=== PATIENT | female | born 1950 | race Caucasian/White ===

== ENCOUNTER → 2020-05-11 | Outpatient (CLI) | payer MEDICARE ==
--- NOTE | 2020-05-11 15:43 | Diagnostic Imaging Report ---
CT Lung Screening INDICATION: History of tobacco use with a 50 pack year history. Currently smokes. TECHNIQUE: Noncontrast, low-dose CT imaging performed according to lung cancer screening protocol. Auto Exposure Controls were utilized during the CT exam to meet ALARA standards for radiation dose reduction. COMPARISON: None FINDINGS: HEART/MEDIASTINUM: Heart size normal. Mild scattered coronary artery calcification. Thoracic aorta is diffusely prominent. Maximum dimension descending thoracic aorta at 3.1 cm. Small hiatal hernia. No suggestion for pathologically enlarged mediastinal lymph nodes on limited, noncontrast imaging. LUNGS/MEASURED PULMONARY NODULES: Emphysematous change about the lung parenchyma. Spiculated mass centrally right upper lobe measuring 18 x 9 x 29 mm. This is largely calcified but is slightly eccentric with a calcification. Slightly more soft tissue component is noted superiorly. Soft tissue component measuring up to 14 mm. There are several additional small micronodules present. Otherwise, no concerning pulmonary mass suggested. No pleural effusion. OTHER: Nonacute, chronic appearing compression deformity with loss of slightly greater than 50% vertebral body height T11 vertebral body. IMPRESSION: 1. Spiculated largely calcified mass right upper lobe. May very well reflect area of scarring. However there is some irregular spiculated soft tissue components along the peripheral margins. Findings are superimposed on advanced emphysematous lung disease. LUNG-RADS CATEGORY: 4 A LUNG SCREENING MANAGEMENT/RECOMMENDATIONS: PET/CT is recommended. Alternatively, 3 month follow-up low-dose CT imaging could be considered. Notes: Please note that this is a low dose CT examination, intended for lung cancer screening of high risk patients. As a technical result, the examination is limited in diagnostic quality compared to a conventional CT examination of the chest. Dictated by: Dictated on workstation # [id number]
== END ==
LOC: RAD 13:17
PROVIDERS: ATTEND Family Medicine
DX: Z12.2 Encounter for screening for malignant neoplasm of respiratory organs (principal); J43.9 Emphysema, unspecified; R92.8 Other abnormal and inconclusive findings on diagnostic imaging of breast; F17.210 Nicotine dependence, cigarettes, uncomplicated

== ENCOUNTER → 2020-05-25 | Outpatient (CLI) | payer MEDICARE ==
--- NOTE | 2020-05-25 15:08 | Diagnostic Imaging Report ---
EXAM: PET/CT INDICATION: Lung mass EXAMINATION: After intravenous administration of 15.23 mCi of F18-FDG into the left antecubital fossa, a series of overlapping emission and transmission PET images was obtained. In the coronal, transaxial and sagittal planes, the area imaged extended from the skull base through the upper thighs. Height: 5 3" Weight: 100 pounds. Blood glucose: 98 COMPARISON: There are no prior PET/CT examinations available for comparison. The CT low-dose lung cancer screening exam of 05/11/2020, did note a spiculated larger calcified mass in the right upper lobe measuring 18 x 9 x 29 mm. This mass did contain a soft tissue component of approximately 14 mm. There are also several additional small micronodules in this region. On this exam, that finding is again evident. The maximum SUV in this area is approximately 1. Consequently I do suspect this is a benign process. Even so, it may prove worthwhile to have a short-term (6 month) follow-up CT low-dose lung cancer screening exam for continued evaluation. The right lobe of the thyroid is slightly more hypermetabolic than the left lobe. The maximum SUV of the right lobe is 4.0 while the maximum SUV of the left lobe is only 2.2. There is no focal mass involving the right lobe of the thyroid. Even so, I would recommend that ultrasound be performed for further study. There is a fairly intense small focus of hypermetabolic activity adjacent to the anterior aspect of the left hip. This has a maximum SUV of approximately 6.7. This finding is of uncertain etiology but appears to lie outside of the hip joint. This may be due to muscular activity or to a muscular injury. Clinical follow-up is recommended. There is no other hypermetabolic activity to suggest the presence of malignancy. The CT images failed to show any sign of an acute abnormality. IMPRESSION: 1. The spiculated largely calcified mass in the right upper lobe is not hypermetabolic. Most likely this is a benign process. A six-month follow-up CT chest exam would be recommended for continued evaluation. 2. The right lobe of the thyroid does seem generally more hypermetabolic than the left. The reason for this is not certain. Ultrasound would be recommended for further evaluation. 3. The small focus of hypermetabolic activity anterior to the left hip may be related to muscular activity or to a muscular injury. Clinical follow-up is recommended. Dictated by: Dictated on workstation # [id number]
== END ==
LOC: RAD 07:45
PROVIDERS: ATTEND Family Medicine
DX: R91.8 Other nonspecific abnormal finding of lung field (principal)
CPT/HCPCS: 78815; A9552

== ENCOUNTER → 2020-10-18 | Outpatient (CLI) | payer MEDICARE ==
[~2020-10-18] MED LIST: CATHETER FLUSH 10 ML SYR IV PRN; HOLD METFORMIN - RECEIVED CONTRAST 20 ML VIAL IV SCH; IOHEXOL 350 MG/ML 100 ML (OMNIPAQUE 350) VIAL IV ONE; NS 100 ML (IVPB) BAG IV ONE; RT-ALBUTEROL SULF 2.5 MG/3 ML PRE-MIX VIAL INH ONE
[2020-10-18 11:52] LABS: BUN/CREATININE RATIO 17; CREATININE SERUM 0.69 MG/DL (0.60-1.30); GFR ESTIMATED > 60
--- NOTE | 2020-10-18 12:40 | Diagnostic Imaging Report ---
PROCEDURE: CT chest with contrast only. TECHNIQUE: Multiple contiguous axial images were obtained through the chest after administration of intravenous contrast. Auto Exposure Controls were utilized during the CT exam to meet ALARA standards for radiation dose reduction. INDICATION: Dyspnea. COMPARISON: 05/11/2020. FINDINGS: Similar to the previous study, there is diffuse centrilobular emphysema throughout the lungs with an upper lobe predominance. The spiculated density in the right upper lobe has not significantly changed, suggestive of probable benign etiology. No pleural or pericardial fluid is identified. There is no evidence of pathologic adenopathy in the thorax. Compression fracture deformity is noted in the lower thoracic spine, similar to the previous exam. No abnormal contrast enhancement is seen. IMPRESSION: Background emphysema and unchanged spiculated nodule in the right apex. Given the stability since the previous study, this is likely benign although an additional followup study in 6 months is recommended for assessment. Dictated by: Dictated on workstation # [id number]
== END ==
LOC: RT 12:15
PROVIDERS: ATTEND Nurse Practitioner Family
DX: J43.9 Emphysema, unspecified (principal); R91.8 Other nonspecific abnormal finding of lung field; F17.210 Nicotine dependence, cigarettes, uncomplicated
CPT/HCPCS: 36415; 71260; 82565; 84520; 94060; 94726; 94729

== ENCOUNTER → 2021-07-26 | Outpatient (CLI) | payer MEDICARE ==
[~2021-07-26] MED LIST changes: -RT-ALBUTEROL SULF 2.5 MG/3 ML PRE-MIX VIAL INH ONE
[2021-07-26 09:17] LABS: CREATININE SERUM 0.79 MG/DL (0.60-1.30)
--- NOTE | 2021-07-26 10:39 | Diagnostic Imaging Report ---
PROCEDURE: CT chest with contrast only. TECHNIQUE: Multiple contiguous axial images were obtained through the chest after administration of intravenous contrast. Auto Exposure Controls were utilized during the CT exam to meet ALARA standards for radiation dose reduction. INDICATION: Abnormal findings, pulmonary nodule. COMPARISON: 10/18/2020, 05/11/2020, and PET/CT dated 05/25/2020. FINDINGS: Tiny subcentimeter thyroid hypodense nodules are again identified and not significantly changed. No aneurysmal dilatation of the thoracic aorta with scattered vascular calcifications present, including within the coronary arteries. No significant adenopathy within chest. The heart is within normal limits in size. No pericardial effusion. No pleural effusion. No pneumothorax. Moderate background emphysematous changes are again identified. Linear filling defects within the left aspect of the trachea are felt to relate to secretions. Irregular 1.9 x 0.8 cm predominantly calcified right upper lobe pulmonary nodule is again identified, unchanged from the prior examinations. This was previously shown to also be non-hypermetabolic on PET/CT imaging. No new suspicious pulmonary nodule or mass. Calcifications are again identified throughout the pancreatic parenchyma, related to sequelae of prior pancreatitis. The visualized upper abdomen is otherwise unremarkable. Severe compression deformity of T6 is identified with a vertebral plana appearance. This is new from the prior examination. No significant retropulsion. Moderate superior endplate compression deformity of T11 is identified and unchanged from prior examination. Scattered osseous degenerative changes. IMPRESSION: Stable irregular 1.9 cm predominantly calcified right upper lobe pulmonary nodule. This is unchanged since April 2020, suggesting a benign etiology. Follow-up CT of the chest in one year is recommended. Severe compression deformity of T6. Exact chronicity is uncertain, though this is new since September 2020. Recommend correlation for focal pain at this location. No significant resulting central canal stenosis. Moderate background emphysematous changes. Dictated by: Dictated on workstation # [id number]
== END ==
LOC: RAD 09:45
PROVIDERS: ATTEND Nurse Practitioner Family
DX: R91.1 Solitary pulmonary nodule (principal)
CPT/HCPCS: 36415; 71260; 82565; 84520

== ENCOUNTER → 2022-01-18 | Outpatient (CLI) | payer MEDICARE ==
[~2022-01-18] MED LIST changes: -CATHETER FLUSH 10 ML SYR IV PRN; -HOLD METFORMIN - RECEIVED CONTRAST 20 ML VIAL IV SCH; -IOHEXOL 350 MG/ML 100 ML (OMNIPAQUE 350) VIAL IV ONE; -NS 100 ML (IVPB) BAG IV ONE; +RT-ALBUTEROL SULF 2.5 MG/3 ML PRE-MIX VIAL INH ONE
== END ==
LOC: RT 09:15
PROVIDERS: ATTEND Internal Medicine Critical Care Medicine
DX: J44.9 Chronic obstructive pulmonary disease, unspecified (principal); R91.1 Solitary pulmonary nodule
CPT/HCPCS: 94060; 94726; 94729

== ENCOUNTER → 2022-08-10 | Outpatient (CLI) | payer MEDICARE ==
--- NOTE | 2022-08-10 12:43 | Diagnostic Imaging Report ---
EXAMINATION: CT chest without contrast (lung screening). TECHNIQUE: Multiple contiguous axial images were obtained through the chest without the use of intravenous contrast according to lung cancer screening protocol. All CT scans use one or more of the following dose optimizing techniques: automated exposure control, MA and/or KvP adjustment based on patient size and exam type or iterative reconstruction. HISTORY: 51 pack year history of smoking. COMPARISON: 07/26/2021 FINDINGS: There is no edema or pneumonia. No pleural effusion. No pneumothorax. There is a 2.6 x 2.4 cm nodule in the superior segment of the right lower lobe extending across the fissure into the right upper lobe. There is a 0.7 cm right lower lobe nodule posterior to the bronchus intermedius. There is a new 5 mm average diameter nodule in the left lower lobe. There is a new 4 mm right upper lobe nodule. There is unchanged calcified scarring in the right upper lobe. There is no axillary or supraclavicular lymphadenopathy. There is no mediastinal lymphadenopathy. Heart size is normal. There are mild coronary artery calcifications. No pericardial effusion. Aorta is normal in caliber. Limited views of the upper abdomen are unremarkable. There are no suspicious osseus lesions. There are several subacute to chronic right-sided rib fractures. IMPRESSION: 1. Large nodule in the superior segment right lower lobe extending across the fissure into the right upper lobe highly likely to represent a lung cancer. There are also small new nodules in the right lower lobe, left upper lobe and right upper lobe. PET/CT and biopsy recommended. LUNG-RADS CATEGORY: Four X MODIFIER: None. Dictated by: Dictated on workstation # [id number]
== END ==
LOC: RAD 10:50
PROVIDERS: ATTEND Internal Medicine Critical Care Medicine
DX: R91.1 Solitary pulmonary nodule (principal); F17.210 Nicotine dependence, cigarettes, uncomplicated
CPT/HCPCS: 71271

== ENCOUNTER → 2022-10-13 | Outpatient (CLI) | payer MEDICARE ==
--- NOTE | 2022-10-13 14:05 | Diagnostic Imaging Report ---
PROCEDURE: MRI lumbar spine. TECHNIQUE: Multiplanar, multisequence MRI of the lumbar spine was performed without contrast. DATE: October 13, 2022. COMPARISON: CT chest July 26, 2021. INDICATION: 72-year-old female, increasing back pain after fall in June 2022. FINDINGS: The alignment of the lumbar spine is grossly unremarkable. There is no evidence of a diffuse marrow infiltrating or replacing process. There are superior endplate concavities of L4 and L3 with approximately 20% height loss at both levels. There is an inferior endplate concavity of L1 with approximately 20% height loss. There is a superior endplate concavity of T12 with approximately 30% height loss. There is also mild retropulsion of the posterior superior aspect of T12 by approximately 2 to 3 mm without associated high-grade spinal stenosis. There are also compression deformities of T10 and T11 with approximately 65% loss at T10. This appeared to be a fracture line at the level of L1 with very low level adjacent edema. The visualized cord and conus medullaris is unremarkable and terminates at the L1-L2 level. There is mild disc height loss at L3-L4. There is moderate disc height loss at L4-L5. T12-L1: There is a small broad-based posterior disc protrusion eccentric to the left. There is no identified nerve or contact, bilateral recess narrowing, or spinal stenosis. L1-L2: There is a small right paracentral posterior disc protrusion without nerve root contact. The facet joints and ligamentum flavum are unremarkable. There is no foraminal narrowing. There is no spinal canal stenosis. L2-L3: There is no disc bulge. The facet joints and ligamentum flavum are unremarkable. There is no foraminal narrowing. There is no spinal canal stenosis. L3-L4: There is mild diffuse disc bulge. There is mild narrowing of both lateral recesses. The facet joints and ligamentum flavum are unremarkable. There is no foraminal narrowing. There is no spinal canal stenosis. L4-L5: There is diffuse disc bulge. There is mild narrowing of both lateral recesses. The facet joints and ligamentum flavum are unremarkable. There is mild bilateral foraminal narrowing. There is mild spinal canal stenosis. L5-S1: There is no disc bulge. The facet joints and ligamentum flavum are unremarkable. There is no foraminal narrowing. There is no spinal canal stenosis. IMPRESSION: 1. Multiple compression deformities of the thoracolumbar spine as described above with a visible fracture line at the level of L1 with very mild associated marrow edema. This may relate to prior fracture in June 2022 and a subacute fracture. 2. Multilevel disc degenerative changes of the thoracolumbar spine with mild bilateral foraminal narrowing at L4-L5 and mild spinal stenosis at L4-L5 relating to diffuse disc bulge. Dictated by: Dictated on workstation # [id number]
== END ==
LOC: RAD 12:43
PROVIDERS: ATTEND Pain Medicine Interventional Pain Medicine
DX: S32.019A Unspecified fracture of first lumbar vertebra, initial encounter for closed fracture (principal); M47.814 Spondylosis without myelopathy or radiculopathy, thoracic region; M47.815 Spondylosis without myelopathy or radiculopathy, thoracolumbar region; M48.061 Spinal stenosis, lumbar region without neurogenic claudication; M43.9 Deforming dorsopathy, unspecified; M51.16 Intervertebral disc disorders with radiculopathy, lumbar region
CPT/HCPCS: 72148

== ENCOUNTER → 2023-02-13 | Outpatient (CLI) | payer MEDICARE ==
--- NOTE | 2023-02-13 16:33 | Diagnostic Imaging Report ---
INDICATION: Status post bronchoscopy. TIME OF EXAM: 9:47 AM. FINDINGS: The heart size is normal. Soft tissue density in the right suprahilar region appears similar to the CT from 08/10/2022. No pneumothorax is identified. There is no effusion. Multilevel compression deformities involving the lower thoracic spine are noted. IMPRESSION: No evidence of pneumothorax status post bronchoscopy. Dictated by: Dictated on workstation # [id number]
== END ==
LOC: RAD 09:20
PROVIDERS: ATTEND Internal Medicine Critical Care Medicine
DX: J93.9 Pneumothorax, unspecified (principal); Z98.890 Other specified postprocedural states
CPT/HCPCS: 71046